=== PATIENT | male | born 1955 | race Caucasian/White ===

== ENCOUNTER 2022-02-14 16:14 | Emergency (ER) | payer OTHER, SELFPAY ==
[2022-02-14 16:43] VITALS: BP 156/76; PULSE 77; RESP 16; TEMP 36.9; O2SAT 98; BMI 31.8
--- NOTE | 2022-02-14 18:28 | DI.RAD.S_ITS ---
PROCEDURE: XR HAND LT MIN 3V INDICATIONS: LAceration on dorsal aspect of middle finger TECHNIQUE: 3 views of the hand(s) acquired. COMPARISON: None. FINDINGS: Bones: Oblique fracture through the mid 3rd proximal phalanx with dorsal angulation of distal fracture fragment Soft tissues: No suspicious soft tissue calcifications. IMPRESSION: Comminuted angulated 3rd proximal phalangeal fracture Approved by: Marco Mayfield M.D. on 02/14/2022 at 18:17
--- NOTE | 2022-02-14 19:03 | ED_ITS ---
HPI - Wound/Laceration <Rand Nuñez PA-C - Last Filed: 02/14/22 20:22> General Chief Complaint: Wound/Laceration Stated Complaint: Left middle finger injury Time Seen by Provider: 02/14/22 18:06 History of Present Illness HPI narrative: 66-year-old male with past medical history hypertension, diabetes, hyperlipidemia, gout presents to the ED status post a finger injury sustained just prior to arrival. Patient states he was working with a bow and arrow, when the bow accidentally injured his left middle finger on the dorsal aspect. Patient says that the material that hit him was most likely fiberglass. Patient sustained a laceration to the dorsal side, complains of pain at the site of the injury. Bleeding has been controlled with pressure. Patient endorses that he is able to move all his fingers and move all his joints. Patient denies numbness, tingling, weakness. Patient's last tetanus was 6 years ago. Patient is right-hand dominant. Related Data Previous Rx's Medication Instructions Recorded cephalexin 500 mg capsule 500 mg PO TID #21 caps 02/14/22 Allergies Allergy/AdvReac Type Severity Reaction Status Date / Time Penicillins Allergy Severe uknown Verified 02/14/22 20:28 Review of Systems <Rand Nuñez PA-C - Last Filed: 02/14/22 20:22> Review of Systems ROS Unobtainable: All systems reviewed & are unremarkable except as noted in HPI and below Constitutional Constitutional: Denies chills, Denies fatigue, Denies fever(s), Denies frequent falls, Denies lethargy and Denies weakness Eyes Eyes: Denies change in vision, Denies eye discharge, Denies irritation and Denies loss of vision ENT Ears, Nose, Mouth, and Throat: Denies change in voice, Denies dizziness, Denies neck pain, Denies sore throat and Denies throat swelling Cardiovascular Cardiovascular: Denies chest pain, Denies irregular heart rhythm, Denies lightheadedness, Denies palpitations, Denies dyspnea, Denies dyspnea on exertion and Denies orthopnea Respiratory Respiratory: Denies cough, Denies dyspnea, Denies dyspnea on exertion and Denies wheezing Gastrointestinal Gastrointestinal: Denies abdominal pain, Denies change in bowel habits, Denies diarrhea, Denies nausea and Denies vomiting Genitourinary Genitourinary: Denies hematuria, Denies flank pain, Denies urinary incontinence and Denies urinary urgency Musculoskeletal Musculoskeletal: Denies back pain, Denies muscle weakness, Denies neck pain, Denies numbness and Denies tingling Integumentary/Breasts Skin/Breast: Denies pruritus, Denies erythema, Denies rash and Denies wounds Comments: Laceration on left middle finger Neurologic Neurologic: Denies behavioral changes, Denies confusion, Denies dizziness, Denies frequent falls, Denies loss of vision, Denies numbness, Denies tingling and Denies weakness Psychiatric Psychiatric: Denies anxiety, Denies behavioral changes, Denies confusion, Denies depression, Denies homicidal ideation and Denies suicidal ideation Endocrine Endocrine: Denies fatigue, Denies flushing and Denies palpitations Hematologic/Lymphatic Hematologic/Lymphatic: Denies easy bruising Allergic/Immunologic Allergic/Immunologic: Denies urticaria, Denies throat swelling and Denies wheezing Patient History <Rand Nuñez PA-C - Last Filed: 02/14/22 20:22> alcohol intake frequency: a few times a month Substance Use Type: does not use Exam <aRnd Nuñez PA-C - Last Filed: 02/14/22 20:22> Narrative Exam Narrative: Const General:?cooperative, healthy appearing and comfortable [facility] Head:?normal to inspection Ears:?hearing grossly normal bilaterally Nose:?external nose normal Face and sinus:?normal facial exam and sinuses nontender Mouth:?oral mucosae normal Throat:?posterior oropharynx normal Eyes General:?appearance normal, both eyes and all related structures Neck Neck:?normal visual inspection and no lymphadenopathy noted Resp Effort & Inspection:?normal respiratory effort Auscultation:?clear to auscultation bilaterally Cardio Rate:?regular rate Rhythm:?regular rhythm Integumentary 2 cm linear laceration on dorsal aspect of left middle finger along the proximal phalanx. Bleeding is controlled with pressure. There is full range of motion. Strength and sensation is intact. Patient is neurovascularly intact. Neuro General:?patient alert, patient awake and patient oriented x3 Initial Vital Signs Initial Vital Signs: Vital Signs Temperature 98.4 F 02/14/22 16:43 Pulse Rate 77 02/14/22 16:43 Respiratory Rate 16 02/14/22 16:43 Blood Pressure 156/76 H 02/14/22 16:43 Pulse Oximetry 98 02/14/22 16:43 Oxygen Delivery Method 02/14/22 16:43 <Christa Smith MD - Last Filed: 02/14/22 23:40> Initial Vital Signs Initial Vital Signs: Vital Signs Temperature 98.4 F 02/14/22 16:43 Pulse Rate 77 02/14/22 16:43 Respiratory Rate 16 02/14/22 16:43 Blood Pressure 156/76 H 02/14/22 16:43 Pulse Oximetry 98 02/14/22 16:43 Oxygen Delivery Method 02/14/22 16:43 <Christa Smith MD - Last Filed: 02/14/22 23:40> Laceration Repair Middle finger laceration: Time of procedure: 23:29 Site: hand Side (If applicable): left Size (cm): 4 Description: irregular, contaminated and other (involves tendons and bone) Depth: involves muscle layer and involves tendon Local Anesthetic: lidocaine 1% Amount of anesthesia used (mL): 8 Pre-repair: wound explored and irrigated extensively Skin layer closed with: nylon Skin layer suture size: 3-0 Number of sutures: 2 Technique: other (loose approximation for hemostasis) Orthopedic Fracture Reduction left middle finger: Time of procedure: 23:31 Side: left Fracture Reduction Location: finger Analgesia: nerve block Post Reduction X-rays Demonstrate: acceptable reduction Post-reduction neuro exam: other (good cap refill, digital block in place and effective) Post-reduction vascular exam: intact Splint Applied: Yes Patient Tolerated Procedure: Well Orthopedic Splinting/Casting index finger left: Time of procedure: 23:32 Side: left Upper Extremity Injury Location: finger Upper Extremity Immobilizer: volar splint (Extended past the tips of the fingers to trying keep the index finger and position of comfort and fully splinted) Post splinting neuro exam: other (dignital block in place) Post splinting vascular exam: intact Placed by: Provider Course <Rand Nuñez PA-C - Last Filed: 02/14/22 20:22> Orders Ordered: ED Orders 02/14/22 18:28 XR hand LT min 3V Stat 02/14/22 22:31 XR finger LT min 2V Stat Discontinued Medications Bacitracin (Bacitracin Oint 0.9 Gm Pckt) 1 applic TOP NOW ONE Stop: 02/14/22 22:08 Last Admin: 02/14/22 22:42 Dose: 1 applic Documented By: NAEEM Diphtheria/Tetanus/Acell Pertussis (Tet,Diph,Pertuss(Acell),Vac/Pf 0.5 Ml Syringe) 0.5 ml IM .ONCE ONE Stop: 02/14/22 20:58 Last Admin: 02/14/22 21:05 Dose: 0.5 ml Documented By: AMU Cefazolin Sodium/Dextrose (Ancef) 100 mls @ 200 mls/hr IV NOW ONE Stop: 02/14/22 20:11 Last Admin: 02/14/22 22:41 Dose: Not Given Documented By: NAEEM Cefazolin Sodium/Dextrose (Ancef) 100 mls @ 200 mls/hr IV NOW ONE Stop: 02/14/22 22:59 Last Infusion: 02/14/22 23:13 Dose: 0 mls/hr Documented By: Admin: 02/14/22 22:40 Dose: 200 mls/hr Documented By: NAEEM Lidocaine HCl (Lidocaine 1% (Pf) 5 Ml) 10 ml INJ NOW ONE Stop: 02/14/22 19:56 Last Admin: 02/14/22 20:32 Dose: 10 ml Documented By: SB Morphine Sulfate (Morphine 4 Mg/Ml Inj) 4 mg IV NOW ONE Stop: 02/14/22 19:57 Last Admin: 02/14/22 20:33 Dose: Not Given Documented By: SB Vital Signs Vital signs: Vital Signs - 8 hr 02/14/22 16:43 02/14/22 21:52 02/14/22 21:52 Temperature 98.4 F Pulse Rate 77 68 Respiratory Rate 16 Blood Pressure 156/76 H 133/67 Pulse Oximetry 98 97 Oxygen Delivery Method Room Air <Christa Smith MD - Last Filed: 02/14/22 23:40> Orders Ordered: ED Orders 02/14/22 18:28 XR hand LT min 3V Stat 02/14/22 22:31 XR finger LT min 2V Stat Discontinued Medications Bacitracin (Bacitracin Oint 0.9 Gm Pckt) 1 applic TOP NOW ONE Stop: 02/14/22 22:08 Last Admin: 02/14/22 22:42 Dose: 1 applic Documented By: NAEEM Diphtheria/Tetanus/Acell Pertussis (Tet,Diph,Pertuss(Acell),Vac/Pf 0.5 Ml Syringe) 0.5 ml IM .ONCE ONE Stop: 02/14/22 20:58 Last Admin: 02/14/22 21:05 Dose: 0.5 ml Documented By: AMU Cefazolin Sodium/Dextrose (Ancef) 100 mls @ 200 mls/hr IV NOW ONE Stop: 02/14/22 20:11 Last Admin: 02/14/22 22:41 Dose: Not Given Documented By: SB Cefazolin Sodium/Dextrose (Ancef) 100 mls @ 200 mls/hr IV NOW ONE Stop: 02/14/22 22:59 Last Infusion: 02/14/22 23:13 Dose: 0 mls/hr Documented By: Admin: 02/14/22 22:40 Dose: 200 mls/hr Documented By: SB Lidocaine HCl (Lidocaine 1% (Pf) 5 Ml) 10 ml INJ NOW ONE Stop: 02/14/22 19:56 Last Admin: 02/14/22 20:32 Dose: 10 ml Documented By: SB Morphine Sulfate (Morphine 4 Mg/Ml Inj) 4 mg IV NOW ONE Stop: 02/14/22 19:57 Last Admin: 02/14/22 20:33 Dose: Not Given Documented By: SB Vital Signs Vital signs: Vital Signs - 8 hr 02/14/22 16:43 02/14/22 21:52 02/14/22 21:52 Temperature 98.4 F Pulse Rate 77 68 Respiratory Rate 16 Blood Pressure 156/76 H 133/67 Pulse Oximetry 98 97 Oxygen Delivery Method Room Air MDM - Wound/Laceration <Rand Nuñez PA-C - Last Filed: 02/14/22 20:22> MDM Narrative Medical decision making narrative: 66-year-old male presents to the ED status post a finger injury sustained just prior to arrival. Concern for fracture/dislocation versus laceration. Will obtain x-rays. Will reassess. X-ray with comminuted angulated 3rd proximal phalangeal fracture. Will start patient on cefazolin, update Tdap. Will control pain with morphine. Patient to be washed out and sutured, discharged home on antibiotics. Ortho surgeon on- call Dr. Mar is on board with the plan. Care of the patient is now transferred to Dr. Christa Giron. <Christa Smith MD - Last Filed: 02/14/22 23:40> MDM Narrative Medical decision making narrative: 66-year-old male presents to the ED status post a finger injury sustained just prior to arrival. Concern for fracture/dislocation versus laceration. Will obtain x-rays. Will reassess. X-ray with comminuted angulated 3rd proximal phalangeal fracture. Will start patient on cefazolin, update Tdap. Will control pain with morphine. Patient to be washed out and sutured, discharged home on antibiotics. Ortho surgeon on- call Dr. Mar is on board with the plan. Care of the patient is now transferred to Dr. Christa Giron. Patient is independently examined. He does have distal sensation and good blood flow prior to anesthesia. There was a large laceration over the dorsum of the proximal phalanx with obvious fracture and tendon injury. The wound is thoroughly irrigated, skin is closed for hemostasis, bulky dressing is placed and splint is placed to stabilize the finger. I have impressed upon him the absolute importance of antibiotics and immediate follow-up. We discussed infection, poor healing, additional complications including and up to hand amputation. Pain is adequately controlled, he is demonstrating understanding of instructions, questions are answered he is safe for home discharge Discharge Plan Departure Patient Disposition: Home Clinical Impression: Laceration Finger fracture, left Qualifiers: Encounter type: initial encounter Finger: middle finger Fracture type: open Phalanx: middle Fracture alignment: displaced Qualified Code(s): S62.623B - Displaced fracture of middle phalanx of left middle finger, initial encounter for open fracture Instructions: DI for Finger Fracture Activity Restrictions/Additional Instructions: Thank you for coming in today You have and open fracture of the proximal phalanx with tendon injury on the left side. In the emergency department it was thoroughly cleaned out, you were given IV antibiotics and a tetanus shot, the wound was loosely reapproximated to help with bleeding and your placed in an overly large splint to keep your finger completely immobilized Finger fractures, particularly open finger fractures can have lots of complications. You need to call [facility] at [phone] 1st thing tomorrow to schedule an immediate follow-up appointment. Please tell them that you were in the emergency department and have an open fracture of the proximal phalanx with tendon injury on the left side. Dr Mar recommended outpatient follow up for definitive care If you have difficulty scheduling any follow-up, please return to the emergency department Prescriptions: New cephalexin 500 mg capsule 500 mg PO TID Qty: 21 0RF Referrals: Hua Lozada MD [Primary Care Provider] -
--- NOTE | 2022-02-14 20:10 | PC.NURSE ---
Pt not given antibiotic due to report of an allergy to penicillin. Reports childhood reaction that the doctor said would be life threatening if he had it again. Provider Rand morrison.
[2022-02-14] MEDS: LIDOCAINE 1% (PF) 5 ML 10 ML INJ (20:32)
[2022-02-14] MEDS: TET,DIPH,PERTUSS(ACELL),VAC/PF 0.5 ML SYRINGE IM (21:05)
[2022-02-14 21:52] VITALS: BP 133/67; PULSE 68; O2SAT 97
--- NOTE | 2022-02-14 22:31 | DI.RAD.S_ITS ---
PROCEDURE: XR FINGER LT MIN 2V INDICATIONS: post reduction/splinting TECHNIQUE: AP hand, 2 views of the 3rd digit acquired. COMPARISON: [facility], CR, XR HAND LT MIN 3V, 02/14/2022, 18:34. FINDINGS: Bones: There is an external splint which limits evaluation of fine bony detail. There is slightly improved alignment status post closed reduction of the previously described fracture of the 3rd proximal phalanx. There is persistent mild radial sided displacement with mild dorsal angulation, decreased from the prior study. Soft tissues: External splint limits evaluation of soft tissue details. IMPRESSION: 1. Slightly improved alignment status post closed reduction of 3rd proximal phalangeal fracture. Dictated by: Ganga Saleem M.D. on 02/14/2022 at 23:33 Approved by: Ganga Saleem M.D. on 02/14/2022 at 23:34
[2022-02-14] MEDS: CEFAZOLIN 2 GM/100 ML PREMIX 100 ML IV (22:40)
[2022-02-14] MEDS: BACITRACIN OINT 0.9 GM PCKT 1 APPLIC TOP (22:42)
[2022-02-14 23:53] VITALS: PULSE 70; O2SAT 97
[2022-02-14 23:54] VITALS: BP 148/69
== END 2022-02-14 23:58 | disposition home or self-care (01) ==
PROVIDERS: Emergency Provider Emergency Medicine; PCP Family Medicine
DX: S62.623B Displaced fracture of middle phalanx of left middle finger, initial encounter for open fracture (principal); W22.8XXA Striking against or struck by other objects, initial encounter; Z23 Encounter for immunization
CPT/HCPCS: 13132; 26725; 73130; 73140; 90471; 96365; 99284; 90715; J0690

== ENCOUNTER 2023-03-13 20:06 | Inpatient (IN) | payer MEDICARE, OTHER, SELFPAY ==
[2023-03-13] VITALS (16 sets, daily range): BP systolic 116–147; BP diastolic 53–102; PULSE 78–93; RESP 13–24; TEMP 36.9; O2SAT 95–99; BMI 30.5
--- NOTE | 2023-03-13 20:24 | DI.RAD.S_ITS ---
PROCEDURE: XR ANKLE RT MIN 3V INDICATIONS: walking and felt a pop TECHNIQUE: 3 views of the ankle were acquired. COMPARISON: None. FINDINGS: Bones: Fracture dislocation of the ankle, with lateral malleolus fragment and medial malleolus fragment displaced from the metaphysis. Open fracture medially. Superimposed degenerative changes and plantar calcaneal enthesopathy. Soft tissues: Soft tissue swelling is present. IMPRESSION: Open fracture dislocation of the ankle. Dictated by: Bert Blackman M.D. on 03/13/2023 at 21:37 Approved by: Bert Blackman M.D. on 03/13/2023 at 21:38
--- NOTE | 2023-03-13 21:05 | ED_ITS ---
HPI - Extremity Injury (Lower) General Chief Complaint: Extremity Injury, Lower Stated Complaint: rt ankle injury Time Seen by Provider: 03/13/23 20:09 Source: patient Mode of arrival: Ambulatory History of Present Illness HPI Narrative: 67-year-old male nonsmoker without significant chronic medical history presents with his in the chief complaint of an ankle injury. He states that he was walking in a small room and stepped awkwardly and his foot moved in abnormal motion, he felt significant pain and heard a loud crack. He now has pain and is unable to weightbear. He denies any numbness or tingling. He denies any pain in his knee or hip. Related Data Home Medications Medication Instructions Recorded Confirmed allopurinol 300 mg tablet 300 mg PO BID 03/13/23 03/13/23 amlodipine 10 mg tablet 10 mg PO DAILY 03/13/23 03/13/23 empagliflozin 25 mg tablet 25 mg PO DAILY 03/13/23 03/13/23 (Jardiance) glipizide 10 mg tablet 10 mg PO BID 03/13/23 03/13/23 hydrochlorothiazide 100 mg tablet 125 mg PO DAILY 03/13/23 03/13/23 losartan 100 mg tablet 100 mg PO DAILY 03/13/23 03/13/23 metformin 500 mg tablet,extended 500 mg PO QID 03/13/23 03/13/23 release 24 hr rosuvastatin 20 mg tablet 20 mg PO DAILY 03/13/23 03/13/23 Allergies Allergy/AdvReac Type Severity Reaction Status Date / Time Penicillins Allergy Severe uknown Verified 02/14/22 20:28 Review of Systems Review of Systems Narrative: GENERAL: Denies chills, fatigue, malaise, fever, sweats. HEENT: Denies sinus pain, ear pain, sore throat, difficulty swallowing, dizziness. RESPIRATORY: Denies dyspnea, cough, wheezing, hemoptysis, sputum. CARDIOVASCULAR: Denies chest pain, palpitations, orthopnea, edema, GASTROINTESTINAL: Denies nausea, vomiting, abdominal pain, diarrhea, constipation, melena. : Denies dysuria, frequency, incontinence, hematuria, urinary retention. MUSCULOSKELETAL: See HPI SKIN: Denies rash, skin lesions, or other NEUROLOGIC: Denies weakness, headache, numbness, change in speech, confusion, seizures, incoordination. PSYCHIATRIC: No concerning psychosocial issues. 12 point review of systems is negative except for those stated above Patient History Social History household members: spouse alcohol intake frequency: a few times a month Substance Use Type: does not use Exam Narrative Exam Narrative: GENERAL: [67] year old patient appears stated age. Well-developed patient, in mild distress. HEAD: Atraumatic. Normocephalic. EYES: Pupils equal round and reactive. Extraocular motions intact. No scleral icterus. No injection or drainage. ENT: Nose without bleeding, purulent drainage. Throat without erythema, tonsil lar hypertrophy or exudate. Airway patent. NECK: Trachea midline. Non tender CARDIOVASCULAR: Regular rate and rhythm without murmurs, gallops, or rubs. RESPIRATORY: Clear to auscultation. Breath sounds equal bilaterally. No wheezes, rales, or rhonchi. GASTROINTESTINAL: Abdomen soft, non-tender, nondistended. EXTREMITIES: Obvious deformity to right ankle, superficial abrasions overlying medial malleolus, no bleeding, not obviously open, no numbness or tingling, no pain in knee or hip. BACK: Nontender without deformity or crepitance. No flank tenderness. NEURO: AOx3. SKIN: No rash or erythema of visible areas Initial Vital Signs Initial Vital Signs: Vital Signs Temperature 98.5 F 03/13/23 20:17 Pulse Rate 78 03/13/23 20:17 Respiratory Rate 20 03/13/23 20:17 Blood Pressure 128/81 03/13/23 20:17 Pulse Oximetry 99 03/13/23 20:17 Oxygen Delivery Method Room Air 03/13/23 20:17 Procedures Orthopedic Fracture Reduction Fracture #1: Time Out Performed: Yes Side: right Fracture Reduction Location: tibia and fibula Analgesia: procedural sedation Technique: direct manipulation and traction/counter-traction Post Reduction X-rays Demonstrate: anatomical reduction Post-reduction neuro exam: intact Post-reduction vascular exam: intact Splint Applied: Yes Patient Tolerated Procedure: Well Orthopedic Splinting/Casting Injury #1: Side: right Lower Extremity Injury Location: ankle Lower Extremity Immobilizer: posterior splint and stirrup splint Post splinting neuro exam: intact Post splinting vascular exam: intact Placed by: Provider Procedural Sedation Consent signed: Yes Time out performed: Yes Indication: fracture/dislocation reduction ASA Class: I Mallampati Airway Classification: Class II IV Propofol dose (mg): 100 Intraservice time/total sedation time (min): 10 ED Sedation Level: Moderate (Concious) Patient Tolerated Procedure: Well Complications: none Course Orders Ordered: ED Orders 03/13/23 20:24 XR ankle RT min 3V Stat 03/13/23 20:50 CBC Auto Diff [Complete Blood Count AUTO DIFF] Stat CMP [Comprehensive Metabolic Panel] Stat Hydromorphone HCl (Hydromorphone 0.5 Mg Inj) 0.5 mg IV Q2H PRN PRN Reason: Pain, Severe (7-10) Cefazolin Sodium 1 gm/ Sodium (Chloride) 100 mls @ 200 mls/hr IV Q8H JEFFREY Last Infusion: 03/13/23 22:18 Dose: 0 mls/hr Documented By: Admin: 03/13/23 21:45 Dose: 200 mls/hr Documented By: RAGHU Sodium Chloride (Normal Saline 0.9%) 1,000 mls @ 125 mls/hr IV CONT JEFFREY Ondansetron HCl (Ondansetron 4 Mg/2 Ml Inj) 4 mg IV Q4HR PRN PRN Reason: Nausea And Vomiting Discontinued Medications Hydromorphone HCl (Hydromorphone 0.5 Mg Inj) 0.5 mg IV NOW ONE Stop: 03/13/23 22:20 Last Admin: 03/13/23 22:24 Dose: 0.5 mg Documented By: RAGHU Propofol (Propofol 200 Mg/20 Ml Vial) 100 mg 1 mg/kg (100 mg) IV NOW ONE Stop: 03/13/23 20:56 Last Admin: 03/13/23 21:12 Dose: 100 mg Documented By: RAGHU Vital Signs Vital signs: Vital Signs - 8 hr 03/13/23 20:17 03/13/23 21:09 03/13/23 21:11 Temperature 98.5 F Pulse Rate 78 85 83 Respiratory Rate 20 22 Blood Pressure 128/81 Pulse Oximetry 99 98 98 Oxygen Delivery Method Room Air 03/13/23 21:11 Temperature Pulse Rate Respiratory Rate Blood Pressure 127/53 L Pulse Oximetry Oxygen Delivery Method MDM - Extremity Injury (Lower) Lab Data 03/13/23 20:50 03/13/23 20:50 Labs: Lab Results 10/03/23 10/03/23 Range/Units 20:50 20:50 WBC 6.5 (4.5-11.0) X10^3/uL RBC 4.78 (4.5-5.9) X10^6/uL Hgb 15.5 (13.5-17.5) g/dL Hct 44.5 (41-53) % MCV 93.0 (80-100) fL MCH 32.4 (26-34) PG MCHC 34.9 (30-36) % RDW 13.1 (11.6-14.8) % Plt Count 148 L (150-400) X10^3/uL Neut % (Auto) 63.4 (50-75) % Lymph % (Auto) 19.6 L (25-40) % Rankin % (Auto) 14.9 H (3-14) % Eos % (Auto) 1.4 L (2-4) % Baso % (Auto) 0.7 (0-2) % Neut # (Auto) 4100 (8462-4498) /uL Lymph # (Auto) 1300 (4627-5036) /uL Rankin # (Auto) 1000 H (0-900) /uL Eos # (Auto) 100 (0-450) /uL Baso # (Auto) 0 (0-100) /uL Sodium 138 (137-145) mmol/L Potassium 3.9 (3.4-5.1) mmol/L Chloride 105 (98-107) mmol/L Carbon Dioxide 16 L (22-32) mmol/L BUN 15 (9-20) mg/dL Creatinine 0.65 L (0.66-1.25) mg/dL Estimated GFR > 60 (>60) mL/min BUN/Creatinine Ratio 23.1 H (6-22) Glucose 145 H (80-110) mg/dL Calcium 9.6 (8.4-10.2) mg/dL Total Bilirubin 0.5 (0.2-1.3) mg/dL AST 50 (17-59) IU/L ALT 50 H (<50) IU/L Alkaline Phosphatase 54 (38-126) U/L Total Protein 7.5 (6.3-8.2) g/dL Albumin 4.2 (3.5-5.0) g/dL Globulin 3.3 (1.7-4.1) g/dL Albumin/Globulin Ratio 1.3 (1.0-2.8) MDM Narrative Medical decision making narrative: [67] year old patient presents with isolated, neurovascularly intact but likely open fracture to ankle Multiple etiologies for patient's symptoms considered including, but not limited to: [Fracture versus dislocation versus open injury versus others] Prior Charts reviewed in our EMR Primary Historian: patient Labs reviewed and interpreted by myself: No significant abnormalities requiring specific intervention Imaging reviewed: Open fracture dislocation of right ankle, postreduction shows minimal interval improvement Consultations: Discussed with on-call orthopedist, recommends reduction, splinting, antibiotics, admission to his service, NPO after midnight, pain control, elevation and icing will likely go to OR tomorrow Discharge Plan Departure Patient Disposition: Admitted As Inpatient Clinical Impression: Open ankle fracture Admit Date/Time: 03/13/23 21:14 Admit Provider: Abraham Wahl
[2023-03-13] MEDS: propofoL 200 MG/20 ML VIAL 100 MG IV (21:12)
[2023-03-13 21:24] LABS: Add Manual Diff / Slide Review NO; Basophils Absolute Auto 0 /uL (0-100); Basophils Percent Auto 0.7 % (0-2); Eosinophils Absolute Auto 100 /uL (0-450); Eosinophils Percent Auto 1.4 % (2-4); Hematocrit 44.5 % (41-53); Hemoglobin 15.5 g/dL (13.5-17.5); Lymphocytes Absolute Auto 1300 /uL (1100-4500); Lymphocytes Percent Auto 19.6 % (25-40); Mean Corpuscular HGB Conc 34.9 % (30-36); Mean Corpuscular Hemoglobin 32.4 PG (26-34); Monocytes Absolute Auto 1000 /uL (0-900); Monocytes Percent Auto 14.9 % (3-14); Neutrophils Absolute Auto 4100 /uL (1500-7000); Neutrophils Percent Auto 63.4 % (50-75); Platelet Count 148 X10^3/uL (150-400); Red Blood Cell Count 4.78 X10^6/uL (4.5-5.9); Red Cell Distribution Width 13.1 % (11.6-14.8); White Blood Cell Count 6.5 X10^3/uL (4.5-11.0)
--- NOTE | 2023-03-13 21:25 | DI.RAD.S_ITS ---
PROCEDURE: XR ANKLE RT 2V INDICATIONS: post reduction TECHNIQUE: 2 views of the ankle were acquired. COMPARISON: [facility], , XR ANKLE RT MIN 3V, 03/13/2023, 20:37. FINDINGS: Bones: Fracture dislocation of the ankle, with lateral and medial malleolar fragments again seen. Mortise and fracture alignment is slightly improved. A suspected posterior malleolar fracture is also present. Soft tissues: Soft tissue swelling. IMPRESSION: Slightly improved fracture and ankle alignment. Dictated by: Bert Blackman M.D. on 03/13/2023 at 22:22 Approved by: Bert Blackman M.D. on 03/13/2023 at 22:23
[2023-03-13 21:32] LABS: Alanine Aminotransferase 50 IU/L (<50); Albumin 4.2 g/dL (3.5-5.0); Albumin Globulin Ratio 1.3 (1.0-2.8); Alkaline Phosphatase 54 U/L (38-126); Aspartate Aminotransferase 50 IU/L (17-59); BUN Creatinine Ratio 23.1 (6-22); Bilirubin Total 0.5 mg/dL (0.2-1.3); Blood Urea Nitrogen 15 mg/dL (9-20); Calcium 9.6 mg/dL (8.4-10.2); Carbon Dioxide 16 mmol/L (22-32); Chloride 105 mmol/L (98-107); Estimated Glomerular Filt Rate > 60 mL/min (>60); Globulin 3.3 g/dL (1.7-4.1); Glucose 145 mg/dL (80-110); HEMOLYSIS 25 (0-50); Potassium 3.9 mmol/L (3.4-5.1); Sodium 138 mmol/L (137-145); Total Protein 7.5 g/dL (6.3-8.2)
[2023-03-13] MEDS: CEFAZOLIN VIAL 1 GM in SODIUM CHLORIDE 0.9% 100 ML IV (21:45)
[2023-03-13] MEDS: HYDROMORPHONE 0.5 MG INJ IV (22:24)
[2023-03-13] MEDS: SODIUM CHLORIDE 0.9% 1,000 ML 125 ML IV (22:55)
[2023-03-14] VITALS (11 sets, daily range): BP systolic 133–170; BP diastolic 72–102; PULSE 86–97; RESP 10–18; TEMP 36.2–37; O2SAT 92–97; BMI 30.5
--- NOTE | 2023-03-14 | DI.RAD.S_ITS ---
PROCEDURE: XR ANKLE RT 2V INDICATIONS: RT ANKLE ORIF TECHNIQUE: 4 intraoperative views of the ankle were acquired. COMPARISON: [facility], CR, XR ANKLE RT 2V, 03/13/2023, 21:21. [facility], CR, XR ANKLE RT MIN 3V, 03/13/2023, 20:37. FINDINGS: Bones: Intraoperative fluoroscopic views during ORIF of the ankle. Hardware appears intact. There is improved alignment. Soft tissues: No tibiotalar joint effusion. Achilles tendon appears normal. IMPRESSION: Intraoperative fluoroscopic views during ORIF of the ankle. There is improved alignment. Hardware appears intact. Dictated by: Elliott Wiley M.D. on 03/14/2023 at 15:07 Approved by: Elliott Wiley M.D. on 03/14/2023 at 15:08
[2023-03-14] MEDS: HYDROMORPHONE 0.5 MG INJ IV ×4 (01:20→07:52)
[2023-03-14] MEDS: CEFAZOLIN VIAL 1 GM in SODIUM CHLORIDE 0.9% 100 ML IV (05:45)
[2023-03-14] MEDS: SODIUM CHLORIDE 0.9% 1,000 ML 125 ML IV (07:52)
[2023-03-14] MEDS: LACTATED RINGERS 1,000 ML 42 ML IV ×3 (10:23→13:00)
--- NOTE | 2023-03-14 11:06 | SUR.OPER ---
Prone on padded OR bed, head in foam head support, gel chest rolls, gel pad under knees, pillow under lower legs, toes free of pressure, arms secured on padded arm boards at <90 degrees abduction. Safety belt at thigh.
--- NOTE | 2023-03-14 11:06 | CM.DANOTE ---
DCP: Chart review for case, met with patient at bedside, they agree to case management assessment. Completed DCP assessment based on information available. Patient is a 67 year old admitted for right ankle fracture. Plan for add on OR today. States he has walked on crutches before and understands likely non-weight bearing status during recovery. 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 No foreseen barriers to DC home. PCP: Abel Lozada Payer: [employer] DME: Using old crutches that belonged to his mother. Will need new crutches, possible FWW dependent upon WBS and PT eval post op. DCP: Home with supportive . Kateryna Mosquera RN, CM Discharge Planning/Care Management CM Discharge Assessment Start: 03/14/23 11:00 Freq: Status: Active Protocol: Document 03/14/23 11:05 BQ (Rec: 03/14/23 11:06 BQ [id number]) Discharge Planning Assessment Assigned Engineering Director Kateryna Mosquera RN, CM Advance Directives? No History Provided By Patient Has Patient been admitted in last 30 No days? Prior Living Arrangements House Household Members spouse Type of transporation used prior to Drives own vehicle admit Independent with ADL's Yes Is patient alert and oriented? Yes Caregiver for Another No DME Already Rented / Owned Crutches Comment Using his mothers crutches, will new new/fitted, possible FWW Barriers to Discharge No Discharge Plan Home Referrals Initiated None needed Whiteboard Updated in Patient Room with Yes name and ext. # of Engineering Director Review Status In Process Next Review Type Continued Stay Review
--- NOTE | 2023-03-14 11:25 | P.HP_ITS ---
History of Present Illness History of Present Illness Date Patient Seen: 03/14/23 Time Patient Seen: 11:26 Chief complaint: rt ankle injury Narrative: This is a pleasant 67-year-old male with past medical history of well-controlled type 2 diabetes on metformin last A1c 6.2, who sustained a twisting injury resulting in a trimalleolar open ankle fracture last night. He has no other medical issues and is otherwise healthy. He was seen at the [facility] where reduction was attempted and was unsuccessful. Currently in a splint. Denies any distal numbness or tingling. He does not have any neuropathy from his diabetes. No other complaints at this time. No recent nausea, vomiting, diarrhea, fevers, chills, night sweats, shortness of breath or chest pain no other constitutional symptoms. [facility] Social History household members: spouse Smoking Status: Never smoker Meds Home Medications and Allergies Home Medications Medication Instructions Recorded Confirmed Type allopurinol 300 mg tablet 300 mg PO BID 03/13/23 03/13/23 History amlodipine 10 mg tablet 10 mg PO DAILY 03/13/23 03/13/23 History empagliflozin 25 mg tablet 25 mg PO DAILY 03/13/23 03/13/23 History (Jardiance) glipizide 10 mg tablet 10 mg PO BID 03/13/23 03/13/23 History hydrochlorothiazide 100 mg tablet 125 mg PO DAILY 03/13/23 03/13/23 History losartan 100 mg tablet 100 mg PO DAILY 03/13/23 03/13/23 History metformin 500 mg tablet,extended 500 mg PO QID 03/13/23 03/13/23 History release 24 hr rosuvastatin 20 mg tablet 20 mg PO DAILY 03/13/23 03/13/23 History Allergies Allergy/AdvReac Type Severity Reaction Status Date / Time Penicillins Allergy Severe uknown Verified 02/14/22 20:28 Review of Systems Review of Systems ROS: Yes All systems reviewed with the patient and are negative except as otherwise documented Exam Vital Signs (past 8 hours): - 03/14/23 04:25 03/14/23 07:49 03/14/23 10:41 Temperature 98.6 F 97.2 F L 97.9 F Pulse Rate 89 86 86 Respiratory Rate 18 18 18 Blood Pressure 142/76 H 138/72 153/79 H Pulse Oximetry 94 96 97 Oxygen Delivery Method Room Air Oxygen Flow Rate 0 0 Oxygen Delivery Method Room Air Oxygen Flow Rate 0 Narrative Exam Narrative: HEENT: Head atraumatic eyes anicteric moist mucous membranes Cardiovascular: Palpable peripheral pulses extremities are warm and well perfused Respiratory: Breathing comfortably on room air Psychiatric: Appropriate mood and affect Neuro: No acute deficits Musculoskeletal: Exam of right lower extremity demonstrates splint in place, able to wiggle toes. Sensation intact in sural, saphenous, superficial peroneal, deep peroneal and tibial nerve distributions. 2+ dorsalis pedis pulse with brisk capillary refill less than 2 seconds. Objective Imaging Ankle x-ray right: My impression: AP, lateral and oblique right ankle reviewed from the emergency department demonstrates a trimalleolar ankle fracture significantly displaced laterally. Labs 03/13/23 20:50 03/13/23 20:50 Labs: Laboratory Results - last 24 hr 03/13/23 20:50 WBC 6.5 RBC 4.78 Hgb 15.5 Hct 44.5 MCV 93.0 MCH 32.4 MCHC 34.9 RDW 13.1 Plt Count 148 L Neut % (Auto) 63.4 Lymph % (Auto) 19.6 L Foard % (Auto) 14.9 H Eos % (Auto) 1.4 L Baso % (Auto) 0.7 Neut # (Auto) 4100 Lymph # (Auto) 1300 Foard # (Auto) 1000 H Eos # (Auto) 100 Baso # (Auto) 0 Sodium 138 Potassium 3.9 Chloride 105 Carbon Dioxide 16 L BUN 15 Creatinine 0.65 L Estimated GFR > 60 BUN/Creatinine Ratio 23.1 H Glucose 145 H Calcium 9.6 Total Bilirubin 0.5 AST 50 ALT 50 H Alkaline Phosphatase 54 Total Protein 7.5 Albumin 4.2 Globulin 3.3 Albumin/Globulin Ratio 1.3 Assessment & Plan Assessment & Plan narrative: Assessment: Right open trimalleolar ankle fracture Plan: We discussed operative indications. Patient has a open unstable trimalleolar ankle fracture. In order to restore stability of the ankle allow weight-bearing in reduce the risk of infection we recommend operative fixation of his ankle along with irrigation debridement and IV antibiotics. Risks and benefits of surgery were discussed again including the risk of infection, damage to internal structures, bleeding, nerve injury, instability, need for revision surgery, blood clots, anesthesia and . No guarantees were made regarding outcomes. Patient expressed understanding and accepted these risks and wished to go forward with surgery and consent was signed.
[2023-03-14] MEDS: TRANEXAMIC ACID 1,000 MG in SODIUM CHLORIDE 0.9% 100 ML 200 MG IV (11:45)
--- NOTE | 2023-03-14 12:20 | SUR.OPER ---
Lateral on a kumar bag, head on pillow, gel axillary roll in place, bottom leg bent with gel pad under knee to foot, upper leg straight and supported with pillows. Upper arm supported by pillows and secured over bottom arm to padded arm board. Safety belt at hip, tape over blanket lower legs.
--- NOTE | 2023-03-14 12:20 | SUR.OPER ---
MULTIPLE HEALING ABRASIONS ON HANDS, RIGHT ANKLE MEDIAL SIDE BLISTERS AND OPEN WOUND, RIGHT GROIN 2 PURPLE SKIN LESIONS, SCROTUM ENLARGED.. DR. REYES AWARE
[2023-03-14] MEDS: BUPIVACAINE 0.25% (PF) 30 ML, EPINEPHrine 0.15 MG INJ (12:52)
--- NOTE | 2023-03-14 13:11 | SUR.OPER ---
2 Grams Ancef given IV by Anesthesia at 1200
--- NOTE | 2023-03-14 14:25 | SUR.OPER ---
Supine on padded OR bed, head on pillow, arms secured on padded arm boards at <90 degrees abduction, legs uncrossed, safety belt at thigh, tape over blanket over lower legs.For second half procedure
--- NOTE | 2023-03-14 15:14 | PM.OP.1 ---
Operative Date/Time/Diagnoses Date of procedure: 03/14/23 Time of procedure: 15:15 Pre-op diagnosis: Right trimalleolar ankle fracture, open Post-op diagnosis: same Procedure & Clinicians Procedure: Operative physician trimalleolar ankle fracture, with fixation of the posterior malleolus Debridement of open fracture, skin and subcutaneous fat medial malleolus Same procedure as scheduled: Yes Indications: This is a 67-year-old male who had a ground level fall while twisting sustaining a open trimalleolar ankle fracture of his right ankle. We discussed preoperatively that in order to maintain stability restore ability to walk he was indicated for operative fixation. Risks and benefits of surgery were discussed again including the risk of infection, damage to internal structures, bleeding, nerve injury, instability, need for revision surgery, blood clots, anesthesia and . No guarantees were made regarding outcomes. Patient expressed understanding and accepted these risks and wished to go forward with surgery and consent was signed. Surgeon: Hubert Womack Click Yes if Unassisted: Yes Operative Notes Findings: Trimalleolar ankle fracture as seen under fluoroscopy and direct visualization. Open wound over the medial malleolus about 1 cm in length with direct communication to the bone. Fracture blistering noted around the medial Closure Type: primary Specimen(s): none sent Prosthetic devices, grafts, tissues, transplants, or devices: Posterior malleolus T-plate Distal fibular locking plate (March and Nephew) 3.5 mm cortical screws for the medial malleolus Estimated Blood Loss (mL): 20 Blood products transfused: none Tourniquet time (min): 105 Procedure in detail: Procedure: The patient was met in the preoperative holding area and we again discussed the risks and benefits of surgery. My initials were marked on the correct right lower extremity. The patient was brought back to the operating room and transferred to the operating table. Smooth induction of anesthesia was performed. A time-out was then performed confirming the correct operative extremity with my initials. A tourniquet was applied to the upper thigh. First he was placed in the lateral decubitus position using a kumar bag. Axillary roll was placed and all bony prominences were padded. Standard sterile prep was done with chlorhexidine. Appropriate dry time was observed. An Esmarch was used and the tourniquet was inflated to 250 mmHg. A posterior lateral approach to the posterior malleolus was made dissecting posterior to the peroneal tendon sheath. The sural nerve was looked for but was not seen. The FHL was encountered and released off of the posterior tibia. Posterior malleolus fracture was then encountered. It was elevated and fracture hematoma was debrided. K-wires held provisional plate fixation while the T-plate was centered. Starting proximally, cortical screws were placed while moving distally. This helped to reduce the fracture even more. The 3 distal holes were filled with lag by technique 2.7 mm cortical screws. We then turned our attention to the fibula. Dissecting on the other side of the peroneal tendons direct approach to the Fibula was made using a 10 blade. We looked for the superficial peroneal nerve at the proximal portion of the incision and this was protected throughout the case. Dissection was carried down to the bone and the fracture was encountered. This was a very long oblique fracture ending at the level of the joint. Two separate posterior to anterior lag screws were then placed by technique. A small March and Nephew fracture specific distal fibula locking plate was then fashioned and placed onto the fibula and confirmed to be in the correct position using fluoroscopy. A shaft screw was used followed by distal locking screws. Final fluoroscopy confirmed screw length and plate position as well as fracture reduction. We then turned our attention to the medial malleolus. A direct medial approach was taken to the medial malleolus. A transverse fracture was encountered. The fracture edges were cleaned. The posterior tibialis tendon was noted to be posteriorly along the posterior border of the tibia. This was protected throughout the remainder of the case. A small menhaden vessel pilot hole was drilled proximal to the fracture. This was used along with a pointed reduction clamp to obtain good reduction of the fracture. Two separate K-wires were used and confirmed on fluoroscopy to be in the correct position and trajectory. These were over-drilled and removed and 2 separate 4-0 fully-threaded non cannulated cancellous screws were placed to the far cortex Stress radiographs were then performed which demonstrated no widening of the mortise. Final fluoroscopy demonstrated appropriate screw lengths and hardware position as well as fracture reduction throughout. Wounds were closed with 2-0 PDS and 2-0 nylon and dressed with Xeroform, 4x4s cast padding and then placed into a well-padded splint the patient awoke from anesthesia and was transported to the postoperative recovery unit without any issues Complications: none Post-operative Condition: stable Disposition: PACU Plan for aftercare: Postoperatively: 6 weeks nonweightbearing. There are radiographic signs of healing we will let him start weight-bearing then however he was informed he may be 8 weeks nonweightbearing. Transitioned to a boot at the 2 week candelario in clinic when sutures are removed.
[2023-03-14] MEDS: HYDROCODONE/ACET 5/325 TABLET 1 TAB PO (18:00)
--- NOTE | 2023-03-14 19:28 | PC.NURSE ---
Discharge: Pt returned from OR. Lungs are clear, can wiggle toes, brisk cap refill, sl dusky appearing. Splint is c/d/i. No nausea, was able to eat his meal. Has been able to void. Seen by PT and he wasnt safe with crutches yet but he was able to maintain non weight bear status with walker. Reviewed d/c packet and explained. Questions answered, rx has been esent. Pt d/c to home via auto w/spouse.
== END 2023-03-14 18:30 | disposition home or self-care (01) | DRG 494 ==
LOC: ED 20:29 → AC 22:06
PROVIDERS: Orthopaedic Surgery; Admitting Provider Orthopaedic Surgery Orthopaedic Surgery of the Spine; Emergency Provider Emergency Medicine; PCP Family Medicine; Referring Provider Emergency Medicine; Visit Provider Orthopaedic Surgery Orthopaedic Surgery of the Spine
PROC: 0SSF04Z Reposition Right Ankle Joint with Internal Fixation Device, Open Approach (ICD-10-PCS; principal; 2023-03-14 11:00)
DX: S82.851B Displaced trimalleolar fracture of right lower leg, initial encounter for open fracture type I or II (principal); E11.9 Type 2 diabetes mellitus without complications; X50.1XXA Overexertion from prolonged static or awkward postures, initial encounter; Z79.84 Long term (current) use of oral hypoglycemic drugs
CPT/HCPCS: 27752; 29515; 36415; 73600; 73610; 76000; 80053; 82962; 85025; 96374; 97116; 97161; 99152; 99285; J0171; J0690; J1100; J1170; J1885; J2250; J2405; J2704; J3010

== ENCOUNTER → 2023-05-17 09:52 | Outpatient (CLI) | payer MEDICARE, OTHER, SELFPAY ==
[2023-03-13 23:00] VITALS: BMI 30.5
== END ==
PROVIDERS: PCP Internal Medicine; Referring Provider Orthopaedic Surgery; Visit Provider Surgery
DX: T81.31XA Disruption of external operation (surgical) wound, not elsewhere classified, initial encounter (principal); S91.001A Unspecified open wound, right ankle, initial encounter; R60.0 Localized edema; E11.622 Type 2 diabetes mellitus with other skin ulcer; I10 Essential (primary) hypertension; E78.5 Hyperlipidemia, unspecified; L53.9 Erythematous condition, unspecified
CPT/HCPCS: 11042; 11045; 87070; 87075; 87077; 87186; 87205; 99204; 99214

== ENCOUNTER → 2023-05-24 10:22 | Outpatient (CLI) | payer MEDICARE, OTHER, SELFPAY ==
[2023-03-13 23:00] VITALS: BMI 30.5
== END ==
LOC: WC 10:25
PROVIDERS: PCP Internal Medicine; Referring Provider Orthopaedic Surgery; Visit Provider Surgery
DX: E11.628 Type 2 diabetes mellitus with other skin complications (principal); T81.89XA Other complications of procedures, not elsewhere classified, initial encounter; S91.001A Unspecified open wound, right ankle, initial encounter; R60.0 Localized edema; L53.9 Erythematous condition, unspecified
CPT/HCPCS: 11042; 99213

== ENCOUNTER → 2023-05-30 14:07 | Outpatient (CLI) | payer MEDICARE, OTHER, SELFPAY ==
[2023-03-13 23:00] VITALS: BMI 30.5
== END ==
PROVIDERS: PCP Internal Medicine; Referring Provider Orthopaedic Surgery; Visit Provider Surgery
DX: T81.31XA Disruption of external operation (surgical) wound, not elsewhere classified, initial encounter (principal); S91.001A Unspecified open wound, right ankle, initial encounter; R60.0 Localized edema; R21 Rash and other nonspecific skin eruption; L53.9 Erythematous condition, unspecified
CPT/HCPCS: 11042

== ENCOUNTER → 2023-06-13 14:43 | Outpatient (CLI) | payer MEDICARE, OTHER, SELFPAY ==
[2023-03-13 23:00] VITALS: BMI 30.5
== END ==
LOC: WC 14:44
PROVIDERS: PCP Internal Medicine; Referring Provider Orthopaedic Surgery; Visit Provider Surgery
DX: E11.628 Type 2 diabetes mellitus with other skin complications (principal); T81.89XA Other complications of procedures, not elsewhere classified, initial encounter; S91.001A Unspecified open wound, right ankle, initial encounter; R60.0 Localized edema; L53.9 Erythematous condition, unspecified; R21 Rash and other nonspecific skin eruption
CPT/HCPCS: 11042

== ENCOUNTER → 2023-06-21 08:53 | Outpatient (CLI) | payer MEDICARE, OTHER, SELFPAY ==
[2023-03-13 23:00] VITALS: BMI 30.5
== END ==
LOC: WC 09:01
PROVIDERS: PCP Internal Medicine; Referring Provider Orthopaedic Surgery; Visit Provider Surgery
DX: T81.89XA Other complications of procedures, not elsewhere classified, initial encounter (principal); S91.001A Unspecified open wound, right ankle, initial encounter; R60.0 Localized edema; L53.9 Erythematous condition, unspecified; E11.628 Type 2 diabetes mellitus with other skin complications; I10 Essential (primary) hypertension
CPT/HCPCS: 11042; 99213

== ENCOUNTER → 2023-06-28 09:15 | Outpatient (CLI) | payer MEDICARE, OTHER, SELFPAY ==
[2023-03-13 23:00] VITALS: BMI 30.5
== END ==
LOC: WC 07-02 09:17
PROVIDERS: PCP Internal Medicine; Referring Provider Orthopaedic Surgery; Visit Provider Physician Assistant
DX: T81.89XA Other complications of procedures, not elsewhere classified, initial encounter (principal); S91.001A Unspecified open wound, right ankle, initial encounter; R60.0 Localized edema; L53.9 Erythematous condition, unspecified
CPT/HCPCS: 99212

== ENCOUNTER → 2023-07-02 10:13 | Outpatient (CLI) | payer MEDICARE, OTHER, SELFPAY ==
[2023-03-13 23:00] VITALS: BMI 30.5
== END ==
LOC: WC 10:14
PROVIDERS: PCP Internal Medicine; Referring Provider Orthopaedic Surgery; Visit Provider Surgery
DX: E11.628 Type 2 diabetes mellitus with other skin complications (principal); T81.89XA Other complications of procedures, not elsewhere classified, initial encounter; S91.001A Unspecified open wound, right ankle, initial encounter; R60.0 Localized edema
CPT/HCPCS: 11042; 87070; 87075; 87205

== ENCOUNTER → 2023-07-04 16:42 | Outpatient (ROUT) | payer MEDICARE, OTHER, SELFPAY ==
[2023-03-13 23:00] VITALS: BMI 30.5
[2023-07-04 17:08] LABS: Alanine Aminotransferase 45 IU/L (<50); Albumin 3.9 g/dL (3.5-5.0); Albumin Globulin Ratio 1.1 (1.0-2.8); Alkaline Phosphatase 102 U/L (38-126); Aspartate Aminotransferase 53 IU/L (17-59); BUN Creatinine Ratio 28.9 (6-22); Bilirubin Total 0.6 mg/dL (0.2-1.3); Blood Urea Nitrogen 24 mg/dL (9-20); Calcium 9.8 mg/dL (8.4-10.2); Carbon Dioxide 26 mmol/L (22-32); Chloride 99 mmol/L (98-107); Estimated Glomerular Filt Rate > 60 mL/min (>60); Globulin 3.7 g/dL (1.7-4.1); Glucose 212 mg/dL (80-110); HEMOLYSIS 18 (0-50); Potassium 4.6 mmol/L (3.4-5.1); Sodium 137 mmol/L (137-145); Total Protein 7.6 g/dL (6.3-8.2); Uric Acid 3.4 mg/dL (3.5-8.5)
[2023-07-04 17:10] LABS: Add Manual Diff / Slide Review NO; Basophils Absolute Auto 0 /uL (0-100); Basophils Percent Auto 0.7 % (0-2); Eosinophils Absolute Auto 300 /uL (0-450); Eosinophils Percent Auto 3.9 % (2-4); Hematocrit 41.8 % (41-53); Hemoglobin 14.2 g/dL (13.5-17.5); Lymphocytes Absolute Auto 1100 /uL (1100-4500); Lymphocytes Percent Auto 16.7 % (25-40); Mean Corpuscular HGB Conc 33.9 % (30-36); Mean Corpuscular Volume 85.6 fL (80-100); Monocytes Absolute Auto 1000 /uL (0-900); Monocytes Percent Auto 14.7 % (3-14); Neutrophils Absolute Auto 4200 /uL (1500-7000); Platelet Count 241 X10^3/uL (150-400); Red Blood Cell Count 4.88 X10^6/uL (4.5-5.9); Red Cell Distribution Width 13.6 % (11.6-14.8); White Blood Cell Count 6.5 X10^3/uL (4.5-11.0)
== END ==
PROVIDERS: PCP Internal Medicine; Visit Provider Internal Medicine Infectious Disease
DX: M86.9 Osteomyelitis, unspecified (principal); E11.9 Type 2 diabetes mellitus without complications
CPT/HCPCS: 80053; 84550; 85025; 86140

== ENCOUNTER → 2023-07-09 08:55 | Outpatient (CLI) | payer MEDICARE, OTHER, SELFPAY ==
[2023-03-13 23:00] VITALS: BMI 30.5
== END ==
LOC: WC 08:56
PROVIDERS: PCP Internal Medicine; Referring Provider Orthopaedic Surgery; Visit Provider Surgery
DX: E11.628 Type 2 diabetes mellitus with other skin complications (principal); T81.89XA Other complications of procedures, not elsewhere classified, initial encounter; S91.001A Unspecified open wound, right ankle, initial encounter; R60.0 Localized edema; L53.9 Erythematous condition, unspecified
CPT/HCPCS: 11042

== ENCOUNTER → 2023-07-11 13:43 | Outpatient (ROUT) | payer MEDICARE, OTHER, SELFPAY ==
[2023-03-13 23:00] VITALS: BMI 30.5
[2023-07-11 13:52] LABS: Add Manual Diff / Slide Review NO; Basophils Absolute Auto 0 /uL (0-100); Basophils Percent Auto 0.5 % (0-2); Eosinophils Absolute Auto 200 /uL (0-450); Eosinophils Percent Auto 3.5 % (2-4); Hematocrit 41.3 % (41-53); Lymphocytes Absolute Auto 1100 /uL (1100-4500); Mean Corpuscular HGB Conc 33.9 % (30-36); Mean Corpuscular Hemoglobin 29.2 PG (26-34); Mean Corpuscular Volume 86.1 fL (80-100); Monocytes Absolute Auto 900 /uL (0-900); Monocytes Percent Auto 15.2 % (3-14); Neutrophils Absolute Auto 3500 /uL (1500-7000); Neutrophils Percent Auto 61.8 % (50-75); Platelet Count 208 X10^3/uL (150-400); Red Cell Distribution Width 13.8 % (11.6-14.8); White Blood Cell Count 5.7 X10^3/uL (4.5-11.0)
[2023-07-11 14:00] LABS: Alanine Aminotransferase 36 IU/L (<50); Albumin 3.8 g/dL (3.5-5.0); Alkaline Phosphatase 102 U/L (38-126); Aspartate Aminotransferase 38 IU/L (17-59); BUN Creatinine Ratio 31.3 (6-22); Bilirubin Total 0.6 mg/dL (0.2-1.3); Blood Urea Nitrogen 21 mg/dL (9-20); C-Reactive Protein Quant 6.4 mg/dL (<1.0); Calcium 9.4 mg/dL (8.4-10.2); Carbon Dioxide 25 mmol/L (22-32); Chloride 101 mmol/L (98-107); Estimated Glomerular Filt Rate > 60 mL/min (>60); Globulin 3.8 g/dL (1.7-4.1); Glucose 249 mg/dL (80-110); HEMOLYSIS < 15 (0-50); Potassium 4.4 mmol/L (3.4-5.1); Sodium 136 mmol/L (137-145); Total Protein 7.6 g/dL (6.3-8.2)
== END ==
PROVIDERS: PCP Internal Medicine; Visit Provider Internal Medicine Infectious Disease
DX: M86.9 Osteomyelitis, unspecified (principal); E11.9 Type 2 diabetes mellitus without complications
CPT/HCPCS: 80053; 85025; 86140

== ENCOUNTER → 2023-07-16 09:39 | Outpatient (CLI) | payer MEDICARE, OTHER, SELFPAY ==
[2023-03-13 23:00] VITALS: BMI 30.5
== END ==
LOC: WC 09:40
PROVIDERS: PCP Internal Medicine; Referring Provider Orthopaedic Surgery; Visit Provider Surgery
DX: T81.89XA Other complications of procedures, not elsewhere classified, initial encounter (principal); S91.001A Unspecified open wound, right ankle, initial encounter; R60.0 Localized edema; L53.9 Erythematous condition, unspecified; E11.628 Type 2 diabetes mellitus with other skin complications
CPT/HCPCS: 11042

== ENCOUNTER → 2023-07-19 07:13 | Outpatient (CLI) | payer MEDICARE, OTHER, SELFPAY ==
[2023-03-13 23:00] VITALS: BMI 30.5
--- NOTE | 2023-07-19 07:17 | DI.RAD.S_ITS ---
PROCEDURE: XR CHEST 1V INDICATIONS: PICC placement TECHNIQUE: One view of the chest was acquired. COMPARISON: None. FINDINGS: Surgical changes and devices: Right PICC line is present with distal tip appearing to terminate overlying the subclavian vasculature. Lungs and pleura: Lungs are clear. No pleural effusions or pneumothorax. Mediastinum: Mediastinal contours appear normal. Heart size is normal. Bones and chest wall: No suspicious bony lesions. Overlying soft tissues appear unremarkable. IMPRESSION: No acute pulmonary process. Right PICC line as above. Further advancement is recommended. Dictated by: Zoey Leahy M.D. on 07/19/2023 at 11:34 Approved by: Zoey Leahy M.D. on 07/19/2023 at 11:35
== END ==
LOC: RAD 07:16
PROVIDERS: PCP Internal Medicine; Referring Provider Internal Medicine Infectious Disease; Visit Provider Internal Medicine Infectious Disease
DX: M86.461 Chronic osteomyelitis with draining sinus, right tibia and fibula (principal)
CPT/HCPCS: 71045

== ENCOUNTER → 2023-07-23 09:12 | Outpatient (CLI) | payer MEDICARE, OTHER, SELFPAY ==
[2023-03-13 23:00] VITALS: BMI 30.5
== END ==
PROVIDERS: PCP Internal Medicine; Referring Provider Orthopaedic Surgery; Visit Provider Surgery
DX: E11.628 Type 2 diabetes mellitus with other skin complications (principal); T81.89XA Other complications of procedures, not elsewhere classified, initial encounter; S91.001A Unspecified open wound, right ankle, initial encounter; R60.0 Localized edema; L53.9 Erythematous condition, unspecified; I10 Essential (primary) hypertension
CPT/HCPCS: 11042; 99212; 99213

== ENCOUNTER → 2023-07-30 09:17 | Outpatient (CLI) | payer MEDICARE, OTHER, SELFPAY ==
[2023-03-13 23:00] VITALS: BMI 30.5
== END ==
LOC: WC 09:18
PROVIDERS: PCP Internal Medicine; Referring Provider Internal Medicine; Visit Provider Surgery
DX: E11.628 Type 2 diabetes mellitus with other skin complications (principal); T81.89XA Other complications of procedures, not elsewhere classified, initial encounter; S91.001A Unspecified open wound, right ankle, initial encounter; R60.0 Localized edema; L98.8 Other specified disorders of the skin and subcutaneous tissue; Z79.2 Long term (current) use of antibiotics
CPT/HCPCS: 11042

== ENCOUNTER → 2023-08-06 11:10 | Outpatient (CLI) | payer MEDICARE, OTHER, SELFPAY ==
[2023-03-13 23:00] VITALS: BMI 30.5
== END ==
LOC: WC 11:12
PROVIDERS: PCP Internal Medicine; Referring Provider Orthopaedic Surgery; Visit Provider Surgery
DX: E11.628 Type 2 diabetes mellitus with other skin complications (principal); T81.89XA Other complications of procedures, not elsewhere classified, initial encounter; S91.001A Unspecified open wound, right ankle, initial encounter; R60.0 Localized edema; Z79.2 Long term (current) use of antibiotics; L98.8 Other specified disorders of the skin and subcutaneous tissue
CPT/HCPCS: 11042

== ENCOUNTER → 2023-08-13 10:05 | Outpatient (CLI) | payer MEDICARE, OTHER, SELFPAY ==
[2023-03-13 23:00] VITALS: BMI 30.5
== END ==
LOC: WC 10:07
PROVIDERS: PCP Internal Medicine; Referring Provider Internal Medicine; Visit Provider Surgery
DX: T81.89XA Other complications of procedures, not elsewhere classified, initial encounter (principal); S91.001A Unspecified open wound, right ankle, initial encounter; L98.8 Other specified disorders of the skin and subcutaneous tissue; R60.0 Localized edema
CPT/HCPCS: 99213

== ENCOUNTER → 2023-08-20 09:48 | Outpatient (CLI) | payer MEDICARE, OTHER, SELFPAY ==
[2023-03-13 23:00] VITALS: BMI 30.5
== END ==
LOC: WC 09:50
PROVIDERS: PCP Internal Medicine; Referring Provider Orthopaedic Surgery; Visit Provider Surgery
DX: T81.89XA Other complications of procedures, not elsewhere classified, initial encounter (principal); S91.001A Unspecified open wound, right ankle, initial encounter; L98.8 Other specified disorders of the skin and subcutaneous tissue; R60.0 Localized edema; E11.628 Type 2 diabetes mellitus with other skin complications; I10 Essential (primary) hypertension
CPT/HCPCS: 11042; 99212; 99213

== ENCOUNTER → 2023-08-27 09:01 | Outpatient (CLI) | payer MEDICARE, OTHER, SELFPAY ==
[2023-03-13 23:00] VITALS: BMI 30.5
== END ==
PROVIDERS: PCP Internal Medicine; Referring Provider Orthopaedic Surgery; Visit Provider Surgery
DX: E11.628 Type 2 diabetes mellitus with other skin complications (principal); T81.89XA Other complications of procedures, not elsewhere classified, initial encounter; S91.001A Unspecified open wound, right ankle, initial encounter; R60.0 Localized edema; Z79.2 Long term (current) use of antibiotics; L98.8 Other specified disorders of the skin and subcutaneous tissue
CPT/HCPCS: 11042

== ENCOUNTER → 2023-09-03 08:58 | Outpatient (CLI) | payer MEDICARE, OTHER, SELFPAY ==
[2023-03-13 23:00] VITALS: BMI 30.5
== END ==
LOC: WC 08:59
PROVIDERS: PCP Internal Medicine; Referring Provider Orthopaedic Surgery; Visit Provider Surgery
DX: T81.89XA Other complications of procedures, not elsewhere classified, initial encounter (principal); S91.001A Unspecified open wound, right ankle, initial encounter; L98.8 Other specified disorders of the skin and subcutaneous tissue; R60.0 Localized edema; E11.628 Type 2 diabetes mellitus with other skin complications
CPT/HCPCS: 17250; 99213

== ENCOUNTER → 2023-11-12 08:55 | Outpatient (CLI) | payer MEDICARE, OTHER, SELFPAY ==
[2023-03-13 23:00] VITALS: BMI 30.5
--- NOTE | 2023-11-12 10:29 | DI.MRI.S_ITS ---
PROCEDURE: MR ANKLE RT WO CON INDICATIONS: Displaced trimalleolar fracture of right lower leg TECHNIQUE: Noncontrast sagittal T1 spin echo and T2 fast spin echo with fat saturation, axial proton density fast spin echo and T2 fast spin echo with fat saturation, coronal T1 spin echo and T2 fast spin echo with fat saturation through the ankle/hindfoot. COMPARISON: [facility] [place], CR, XR ANKLE 3+ VIEWS RIGHT, 08/15/2023, 8:09. [facility] [place], CR, XR ANKLE 3+ VIEWS RIGHT, 10/29/2023, 9:43. FINDINGS: Image quality: Excellent. Bones and joints: Post ORIF changes are seen in distal tibia and fibular with significant susceptibility artifacts. Osteoarthritic changes are noted in midfoot and hindfoot joints. No definite osteochondral injuries of talar dome. No acute fracture or dislocation. Small plantar and dorsal calcaneal enthesophytes are seen. Small tibiotalar and subtalar joint effusion is likely present. No gross loose bodies. Medial structures: The posterior tibialis, flexor digitorum longus, and flexor hallucis longus tendons are intact. There is fluid distending tendon sheath of distal posterior tibialis tendon suggestive of low-grade tenosynovitis. The posterior tibial neurovascular bundle appears normal within the tarsal tunnel, without extrinsic mass effect. There is mildly thickened deltoid ligament and spring ligament. Lateral structures: Lateral ankle ligament evaluation is limited due to significant susceptibility artifacts. No significant widening of the distal tibial fibular syndesmosis. The visualized portion of peroneus tendons are grossly intact. No gross signal abnormality is seen within the sinus tarsi. Anterior structures: The tibialis anterior, extensor hallucis longus, and extensor digitorum longus tendons appear intact. The dorsal talonavicular ligament appears intact. Posterior and plantar structures: Achilles tendon is intact. Medial and lateral bands of the plantar fascia are of normal thickness. No abductor digiti quinti muscle atrophy to suggest Doe neuropathy. IMPRESSION: 1. Limited evaluation due to significant susceptibility artifacts. 2. Prior internal fixation of distal tibial shaft and fibular shaft with significant susceptibility artifacts. Osteoarthritic changes in midfoot and hindfoot joints. No definite acute fracture or dislocation. No evidence of osteochondral injuries. Small joint effusion, no loose bodies. 3. Low-grade tenosynovitis involving distal posterior tibialis tendon. Rest of the ankle tendons are intact. 4. Suggestion of low-grade medial ankle ligament sprain. Lateral ankle ligaments are poorly visualized due to significant susceptibility artifacts. No gross full-thickness ankle ligament rupture. Dictated by: Sandip Sampson M.D. on 11/12/2023 at 16:31 Approved by: Sandip Sampson M.D. on 11/12/2023 at 16:39
== END ==
PROVIDERS: PCP Internal Medicine; Referring Provider Physician Assistant; Visit Provider Physician Assistant
DX: S82.851D Displaced trimalleolar fracture of right lower leg, subsequent encounter for closed fracture with routine healing (principal); M65.861 Other synovitis and tenosynovitis, right lower leg; X58.XXXD Exposure to other specified factors, subsequent encounter
CPT/HCPCS: 73721

== ENCOUNTER 2024-07-09 06:18 | Day surgery (SDC) | payer MEDICARE, OTHER, SELFPAY ==
[2023-03-13 23:00] VITALS: BMI 30.5
[2024-07-02 09:36] VITALS: BMI 32.4
[2024-07-09] VITALS (8 sets, daily range): BP systolic 101–130; BP diastolic 59–75; PULSE 75–85; RESP 12–16; TEMP 36.3–36.9; O2SAT 93–97; BMI 31.1
--- NOTE | 2024-07-09 | DI.RAD.S_ITS ---
PROCEDURE: XR ANKLE RT 2V INDICATIONS: RIGHT ANKLE HARDWARE REMOVAL TECHNIQUE: 3 views of the ankle were acquired. COMPARISON: [facility], , XR ANKLE RT 2V, 03/14/2023, 12:39. FINDINGS: Bones: Digital images from the OR show all plate and screw removal from the distal tibia and fibula. Non unified nondisplaced fracture through the medial malleolus appreciated. There is also a non unified minimally displaced oblique fracture of the lateral malleolus. Tibiotalar and talocalcaneal joints: Spurring anterior tibial plafond noted. There is asymmetric widening medial ankle mortise.. Soft tissues: No soft tissue swelling, calcification or mass. IMPRESSION: Minimally displaced non unified old oblique fracture of the lateral malleolus and nondisplaced old transverse fracture of the medial malleolus. Asymmetric widening medial ankle mortise suggest medial instability Dictated by: Bryce Hernandez M.D. on 07/10/2024 at 10:26 Approved by: Bryce Hernandez M.D. on 07/10/2024 at 10:29
--- NOTE | 2024-07-09 07:05 | PM.PREOP ---
Pre-operative Note Interval Note History & Physical reviewed/Exam performed by Physician: Yes Changes to H&P: No
[2024-07-09] MEDS: LACTATED RINGERS 1,000 ML 42 ML IV (07:18)
[2024-07-09] MEDS: CEFAZOLIN 2 GM/100 ML PREMIX 100 ML IV (07:52)
[2024-07-09] MEDS: BUPIVACAINE 0.25% W/ EPI 30 ML VIAL INJ (08:26)
[2024-07-09] MEDS: OXYCODONE IR 5 MG TABLET PO (10:15)
[2024-07-09] MEDS: hydrOXYzine HCL 25 MG TABLET PO (10:30)
--- NOTE | 2024-07-09 12:14 | P.OP_ITS ---
Operative Date/Time/Diagnoses Date of procedure: 07/09/24 Time of procedure: 12:14 Pre-op diagnosis: Posttraumatic ankle arthritis right Sequelae displaced trimalleolar ankle fracture right Contracted scar ankle Post-op diagnosis: same Procedure & Clinicians Procedure: 1. Removal of implant and hardware right ankle from both the tibia and fibula plates and screws. CPT code 77438 right 2. Debridement skin and subcutaneous tissue 1st 20 sq cm right ankle separate site CPT code 57989 modifier 59 Same procedure as scheduled: Yes Indications: The patient was a 69-year-old male that had a right ankle fracture dislocation he had an ORIF with a another orthopedic surgeon about a year ago. He has gone on to severe posttraumatic arthritis and chronic pain. He has been indicated for total ankle arthroplasty. As part of the staged procedure he requires removal of his hardware through separate incisions this is extensive hardware removal involving the fibula the posterior tibia through a posterior lateral approach. He also has a painful adherent scar medially requests debridement and revision of. The risks and benefits of the procedure have been discussed with the patient and given the opportunity to ask questions. The risks of surgery include but are not limited to infection, malunion, nonunion, persistence of pain, damage to nerves and blood vessels, posttraumatic arthritis, DVT, PE, cardiopulmonary complications and . The patient expressed a thorough understanding of the risks and benefits of surgery and has elected to proceed. Consent was signed in the office today. Surgeon: Quita Eckert Click Yes if Unassisted: Yes Anesthesia Type: General Operative Notes Findings: 1. Retained lateral fibular locking plate retained posterior tibia T plate. These were removed. Extensive dissection required to mobilize and remove posterior tibial plate including removal of bent screws requiring extensive time and instrumentation. 2. Separate incision for mobilization of medial adherence scar to medial malleolus excision of contracted scar subcutaneous mobilization and closure. Closure Type: primary Specimen(s): none sent Estimated Blood Loss (mL): 30 Tourniquet time (min): 60 Procedure in detail: The patient was seen in the preoperative area the site of surgery was marked informed consent confirmed this was the right ankle. He was taken back to the operating room and positioned on the table. General anesthetic was administered. The patient was rolled up into the lateral decubitus position. A well padded axillary roll was placed. A well-padded ipsilateral thigh tourniquet was applied. The right lower extremity was then prepped and draped in the standard sterile fashion a formal time-out procedure was performed confirming the patient's side and site of surgery administration of appropriate preoperative antibiotics. All were in agreement. Attention turned to the right ankle. The posterolateral previous incision scar was opened and excised with the widened part proximally. This did have to be extended proximally for proper tissue mobilization. An extensive scarred bed was encountered. Careful dissection to expose the peroneal tendons and then dissect anterior to them to the posterior fibula and lateral fibula was completed to expose the lateral fibula plate and screws. These were removed using the appropriate screwdrivers and included 3.5 and 2.7 screws from the [employer] Nephew set. The plate was then removed and the rongeur used to remove the bony prominences. There were then separate 2 screws in the fibula outside of the plate that had to be identified and removed as well. Once these were completed attention was turned to the distal tibia careful dissection was taken posterior to the peroneal tendons and the interval between the peroneal tendons and then the FHL medially and the Achilles posteriorly to expose the posterior tibia. Again there was extensive scarring in his bed and did take meticulous additional dissection then what a [place] wound bed would require. The posterior tibia was then exposed exposing the T plate and screws. The shaft T plate screws were removed. Distally the medial and lateral distal screws were removed. The central screw was bent and stripped and exceedingly difficult to remove requiring vice scalping machine operator in the rongeur to turned it a quarter turn at a time to remove. This was eventually completely removed then the plate was removed. C-arm was brought in confirming all hardware removal from the tibia and from the fibula. The posttraumatic arthritis was evidence on the x-ray. The wounds were irrigated and were closed with 2-0 PDS 2-0 Vicryl 4-0 Monocryl and 3-0 nylon suture. Local anesthetic was administered for postoperative pain control. Attention was then turned medially and a separate incision was made along the m edial contracted scar scar edges were excised in the elliptical fashion. The Whitman elevator and blue handle elevator were used to mobilize the subcutaneous tissue and skin off of the medial malleolus both anteriorly and posteriorly. Once this was completed the area was irrigated and was closed with 4-0 Monocryl and 3-0 nylon suture. Additional local anesthetic was infiltrated for postoperative pain control. Once this was completed the tourniquet was released prior to final closure. Hemostasis was achieved. Dressings were placed with Xeroform gauze Webril and an Gage wrap. The patient was awoken from anesthesia and taken to the recovery unit in good condition there were no immediate complications from this procedure. Counts were correct. Complications: none Post-operative Condition: stable Disposition: PACU Plan for aftercare: Touchdown or partial weight-bearing in the boot. May remove the boot if needed. Keep dressing clean dry and intact until follow up. Once his wounds are healed appropriately we will work on progressing towards his stage total ankle replacement.
== END 2024-07-09 11:15 | disposition home or self-care (01) ==
PROVIDERS: PCP Internal Medicine; Referring Provider Orthopaedic Surgery Foot and Ankle Surgery; Visit Provider Orthopaedic Surgery Foot and Ankle Surgery
PROC: (CPT 11042; principal; 2024-07-09 07:45)
DX: S82.851S Displaced trimalleolar fracture of right lower leg, sequela (principal); M19.171 Post-traumatic osteoarthritis, right ankle and foot; M25.571 Pain in right ankle and joints of right foot; I10 Essential (primary) hypertension; E78.5 Hyperlipidemia, unspecified; E11.9 Type 2 diabetes mellitus without complications; E66.9 Obesity, unspecified; Z68.32 Body mass index [BMI] 32.0-32.9, adult; Z79.84 Long term (current) use of oral hypoglycemic drugs
CPT/HCPCS: 11042; 27704; 73600; 76000; 82962; A9270; J0330; J0690; J1171; J2250; J2405; J2704; J3010

== ENCOUNTER → 2024-08-05 07:33 | Outpatient (CLI) | payer MEDICARE, OTHER, SELFPAY ==
[2023-03-13 23:00] VITALS: BMI 30.5
--- NOTE | 2024-08-05 07:34 | DI.CT.S_ITS ---
PROCEDURE: CT LE RT WO CON INDICATIONS: ARTHRITIS OF RIGHT ANKLE TECHNIQUE: Noncontrast 3-mm axial sections acquired from the distal tibial shaft to the bottom of the foot, with coronal and sagittal reformats.. COMPARISON: None. FINDINGS: Image quality: Diagnostic. Bones: Patient is status post right total knee arthroplasty. Right knee alignment is anatomic. No evidence of hardware loosening or failure. No acute periprosthetic fracture or dislocation. No significant patellar subluxation. Prior ORIF in distal tibia and fibular are noted with postsurgical changes. Partial bony union is achieved at distal fibular shaft fracture site and posterior malleolus fracture site. Partial bony union is also seen at medial malleolus fracture site. No acute fracture or dislocation is seen. No suspicious bony lesions. Severe tibiotalar joint osteoarthritic changes are seen with near complete loss of joint space, extensive subchondral sclerosis and subcortical cystic changes. Osteoarthritic changes also noted involving articulation between lateral malleolus and lateral periphery of talus. Hcxo-ye-pftayhie osteoarthritic changes are noted in rest of the right foot. Well-defined dorsal calcaneal enthesophyte is seen. Soft tissues: There is mild soft tissue swelling and edema surrounding ankle joint. Moderate tibiotalar joint effusion is seen, no gross calcified intra-articular loose bodies. No significant right knee joint effusion. No soft tissue mass or drainable fluid collection. Vascular calcifications are seen in right lower leg. No full-thickness muscle or tendon rupture. IMPRESSION: 1. Postsurgical changes in ankle joint from prior internal fixation of trimalleolar fracture. Partial bony union is seen at trimalleolar fracture sites. No acute fracture or dislocation. 2. Severe tibiotalar joint osteoarthritis. Esip-ea-rrgwgaev osteoarthritic changes throughout rest of the right foot more notably involving talonavicular joint and subtalar joint. No suspicious bony lesions. 3. Prior right total knee arthroplasty with anatomic right knee alignment. No gross hardware loosening or failure. 4. Moderate tibiotalar joint effusion, no calcified intra-articular loose bodies. No significant right knee joint effusion. 5. Vascular calcifications in posterior right lower leg. No soft tissue mass or other soft tissue calcifications. No full-thickness tendon or muscle rupture. Dictated by: Sandip Sampson M.D. on 08/06/2024 at 12:46 Approved by: Sandip Sampson M.D. on 08/06/2024 at 16:16
== END ==
PROVIDERS: PCP Internal Medicine; Referring Provider Orthopaedic Surgery Foot and Ankle Surgery; Visit Provider Orthopaedic Surgery Foot and Ankle Surgery
DX: M19.071 Primary osteoarthritis, right ankle and foot (principal); M77.31 Calcaneal spur, right foot; M25.471 Effusion, right ankle; S82.851S Displaced trimalleolar fracture of right lower leg, sequela; Z96.651 Presence of right artificial knee joint
CPT/HCPCS: 73700

== ENCOUNTER → 2024-09-18 10:11 | Outpatient (CLI) | payer MEDICARE, OTHER, SELFPAY ==
[2023-03-13 23:00] VITALS: BMI 30.5
--- NOTE | 2024-09-18 10:15 | EKG_ITS ---
[place] [id number] [place] [id number] Test Date: 2024-09-18 Pat Name: Jean-Claude Davidson Department: 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
[2024-09-18 12:15] LABS: Add Manual Diff / Slide Review NO; Basophils Absolute Auto 100 /uL (0-100); Basophils Percent Auto 1.2 % (0-2); Eosinophils Absolute Auto 200 /uL (0-450); Eosinophils Percent Auto 3.2 % (2-4); Hematocrit 47.8 % (41-53); Hemoglobin 16.2 g/dL (13.5-17.5); Lymphocytes Absolute Auto 1400 /uL (1100-4500); Lymphocytes Percent Auto 26.3 % (25-40); Mean Corpuscular Hemoglobin 31.4 PG (26-34); Mean Corpuscular Volume 92.4 fL (80-100); Monocytes Absolute Auto 900 /uL (0-900); Monocytes Percent Auto 15.9 % (3-14); Neutrophils Absolute Auto 2900 /uL (1500-7000); Neutrophils Percent Auto 53.4 % (50-75); Platelet Count 167 X10^3/uL (150-400); Red Blood Cell Count 5.17 X10^6/uL (4.5-5.9); Red Cell Distribution Width 14.2 % (11.6-14.8); White Blood Cell Count 5.4 X10^3/uL (4.5-11.0)
[2024-09-18 12:23] LABS: Hemoglobin A1C% w Est Avg Glu 5.7 % (4.0-6.0)
[2024-09-18 12:51] LABS: Alanine Aminotransferase 57 IU/L (<50); Albumin 4.6 g/dL (3.5-5.0); Albumin Globulin Ratio 1.4 (1.0-2.8); Alkaline Phosphatase 95 U/L (38-126); Aspartate Aminotransferase 65 IU/L (17-59); Bilirubin Total 0.9 mg/dL (0.2-1.3); Blood Urea Nitrogen 17 mg/dL (9-20); Calcium 9.8 mg/dL (8.4-10.2); Carbon Dioxide 24 mmol/L (22-32); Chloride 102 mmol/L (98-107); Estimated Glomerular Filt Rate > 60 mL/min (>60); Globulin 3.2 g/dL (1.7-4.1); Glucose 165 mg/dL (80-110); HEMOLYSIS < 15 (0-50); Potassium 4.7 mmol/L (3.4-5.1); Sodium 140 mmol/L (137-145); Total Protein 7.8 g/dL (6.3-8.2)
== END ==
PROVIDERS: PCP Internal Medicine; Referring Provider Orthopaedic Surgery Foot and Ankle Surgery; Visit Provider Orthopaedic Surgery Foot and Ankle Surgery
DX: Z01.818 Encounter for other preprocedural examination (principal); R73.9 Hyperglycemia, unspecified; Z01.812 Encounter for preprocedural laboratory examination
CPT/HCPCS: 36415; 80053; 83036; 85025; 93005

== ENCOUNTER 2024-10-29 07:27 | Day surgery (SDC) | payer MEDICARE, OTHER, SELFPAY ==
[2023-03-13 23:00] VITALS: BMI 30.5
[2024-10-21 09:34] VITALS: BMI 32.4
[2024-10-29] VITALS (10 sets, daily range): BP systolic 120–146; BP diastolic 68–82; PULSE 74–85; RESP 10–17; TEMP 36.6–37.7; O2SAT 92–98; BMI 33.0
[2024-10-29] MEDS: LACTATED RINGERS 1,000 ML 42 ML IV ×2 (07:48→11:22)
--- NOTE | 2024-10-29 07:57 | PM.PREOP ---
Pre-operative Note Interval Note History & Physical reviewed/Exam performed by Physician: Yes Changes to H&P: No
--- NOTE | 2024-10-29 07:57 | PM.OP.1 ---
Operative Date/Time/Diagnoses Date of procedure: 10/29/24 Time of procedure: 08:50 Pre-op diagnosis: Posttraumatic arthritis right ankle Post-op diagnosis: same Procedure & Clinicians Procedure: Total ankle arthroplasty right ankle CPT code 73210 Tendo-Achilles lengthening right ankle CPT code 53483 modifier 59 for separate site Same procedure as scheduled: Yes Indications: The patient is a 69-year-old male the headache comminuted trimalleolar ankle fracture dislocation proximally 1 year ago this is fixed by another surgeon went on to posttraumatic arthritis. The patient has been indicated for staged total ankle arthroplasty he underwent hardware removal and has now been indicated for total ankle arthroplasty. We discussed the risks benefits and alternatives to the procedure. Patient has elected to proceed. We discussed possibility for need for ligamentous balancing procedures, ligament releases were tendon lengthenings. We discussed the risks for intraoperative fracture or stress fracture and potential need for additional fixation. The risks and benefits of the procedure have been discussed with the patient and given the opportunity to ask questions. The risks of surgery include but are not limited to infection, loosening, fracture, malunion, nonunion, persistence of pain, damage to nerves and blood vessels, wound healing problems, DVT, PE, cardiopulmonary complications and . The patient expressed a thorough understanding of the risks and benefits of surgery and has elected to proceed. Consent was signed. Surgeon: Quita Eckert Click Yes if Unassisted: Yes Anesthesia Type: General, Peripheral nerve block and Local Operative Notes Findings: End-stage valgus right ankle arthritis posttraumatic deformity. Closure Type: primary Specimen(s): none sent Prosthetic devices, grafts, tissues, transplants, or devices: [place] 28 [place] 3D total ankle arthroplasty Tibia arc 3L with stem Talus flat cut 3 Polyethylene liner 9 mm 50 mm 3.5 fully-threaded cannulated screw Synthes medial malleolus Estimated Blood Loss (mL): 50 Blood products transfused: none Tourniquet time (min): 120 Procedure in detail: Patient was seen in the preoperative area the site of surgery was marked informed consent confirmed. This was the right ankle. Patient was brought to the operating room by the anesthesia team. A preoperative block was placed for postoperative pain control. This was placed by the anesthesia team. The patient was positioned supine on operative table. All bony prominences were well padded. An SCD was placed on the contralateral lower extremity. An ipsilateral thigh bump was applied. And a stack of blankets was placed below the operative extremity with care to make sure the heel was hanging free. The left lower extremity was then prepped and draped in the standard sterile fashion a formal time-out procedure was performed confirming the patient's side and site of surgery administration of the appropriate preoperative antibiotic. All were in agreement. The Esmarch was then used for exsanguination the tourniquet raised on the thigh to 250 mmHg. Attention turned to the left ankle. Standard landmarks for a 10 cm incision for the anterior approach the ankle was performed just about 1 cm lateral to the tibial crest to the level of the talonavicular joint. This was taken down through the skin and subcutaneous tissue. The extensor retinaculum was then divided. Care was taken to visualize and protect the superficial peroneal nerve branch and retract this laterally. The interval between the tibialis anterior and the EHL was demonstrated, and the EHL and neurovascular bundle was retracted laterally and the tibialis anterior medially. The joint was exposed and the Bovie cautery was used to subperiosteally dissect out the joint. Next the apex 3D model for the tibia was brought in and the applied to the bone and secured in place with 1 pin and then checked on AP fluoroscopy and then the 2nd pin was applied and these were verified in the AP and lateral planes for appropriate placement. Next the cut block guide was applied and checked for position and slope and then pinned in place. Then the drill holes for the arc tibia were completed with the green guide and then the black guide and then the reciprocal saw was brought in for the gutter cuts. Then the coupled cut to the talus was performed after the talus was pinned neutral and checked on AP and lateral fluoroscopy. The sagittal saw was used for the flat cut talus. Then the tibia was finished with a sized walker drill cut guides and then the guide was flipped over and the final drill holes completed. At this point the tibia and talus bone resections were removed. And the spacer block was applied to confirm appropriate resection. There is a slight marked prominence to the talus so this was smoothed off using the sagittal saw and rasp. Next the guide for the tibial tray was applied and pinned in place and the central stem hole was reamed on drill and confirmed on lateral fluoroscopy for appropriate depth. Once this was completed the talus tray was floated and checked for alignment and then pinned in place with the shoulder pins these were finally tightened on hand with a T-handle. Meticulous care was taken to make sure the medial and lateral gutters were clear. Once this was positioned appropriate the drill holes for the pegs on the talus implant were drilled. Then all the implants were removed and the final tibia tray was applied. The tibial tray was then inserted in place and confirmed appropriate alignment on fluoroscopy. As this was impacted was noted to gap or rock against anterior cortex this was felt to be due to the posttraumatic nature of this ankle with multiple screw tracts from previous removed hardware so was removed and cement applied this was re impacted and held until cement hardening which demonstrated appropriate placement and alignment stability under repeat fluoroscopy after cement hardening. Attention was then turned to the talus which was placed in the standard fashion. A 6 mm poly was initially utilized however there was some anterior gapping so this was graded 2 trials with 7 8 and 9 and then a final 9 selected. Then the trial 9 mm poly was applied. This achieved excellent alignment and stability. This is just short of 10? dorsiflexion so decision was made for a tendo-Achilles lengthening. The leg was held in extension with the ankle in dorsiflexion with the implants and a polyethylene liner in place. Then a 3 small incision chandrika section technique was utilized to lengthen the Achilles tendon with the most distal and most proximal chandrika sections to the lateral side in the middle chandrika section to the medial side. A palpable and audible stretch was achieved now with Range of motion was greater than 10? dorsiflexion with the knee extended and 30? plantar flexion and was stable to varus and valgus stress with no requirements for additional ligamentous procedures. Next given the small size of the ankle a prophylactic medial malleolus screw was placed to prevent stress fracture. A separate incision was made medially for this wire for the cannulated screw was positioned and confirmed at appropriate positioning on AP and lateral x-rays. This was then drilled and measured and a 50 mm 3.5 cannulated fully threaded screw from the Synthes set was applied. Final fluoroscopic x-rays an AP mortise and lateral were obtained that demonstrated appropriate hardware alignment and good clear gutters. At this point tourniquet was released hemostasis was achieved. A Betadine soak was completed then the wound was rinsed. The wounds were closed in a layered fashion including the extensor retinaculum. And the skin was closed with nylon suture. 30 cc of 0.25% Marcaine with epinephrine were injected for local anesthesia. A sterile dressing was applied with Xeroform gauze Webril and a bulky Garcia splint in neutral position. The patient was awoken from anesthesia and taken to the recovery area in good condition there were no immediate complications from this procedure. Counts were correct. Complications: none Post-operative Condition: stable Disposition: PACU Plan for aftercare: Touchdown or nonweightbearing for 2-3 weeks until follow up in Orthopedic Clinic then we will advance weight-bearing 25% each week in a boot and start ankle range of motion which anterior incision is healed appropriately. Aspirin for DVT prophylaxis.
--- NOTE | 2024-10-29 08:46 | SUR.PREOP ---
Block start time [0839] . Timeout at 0835 Monitoring initiated and maintained throughout procedure. Oxygen and medications given per anesthesiologist instructions. Patient remained stable throughout procedure, no adverse reactions noted. Block end time [0843].
[2024-10-29] MEDS: CEFAZOLIN 2 GM/100 ML PREMIX 100 ML IV (08:51)
--- NOTE | 2024-10-29 09:16 | SUR.OPER ---
Supine on padded OR bed, head on pillow, arms secured on padded arm boards at <90 degrees abduction, legs uncrossed, safety belt across torso, tape over blanket over non operative leg. Dr. Eckert in room at time of positioning, Right leg elevated and bumped with blankets by surgeon. All pressure points padded, approved of positioning.
[2024-10-29] MEDS: BUPIVACAINE 0.25% W/ EPI 30 ML VIAL INJ (09:29)
--- NOTE | 2024-10-29 12:30 | DI.RAD.S_ITS ---
PROCEDURE: XR ANKLE RT MIN 3V INDICATIONS: RIGHT TOTAL ANKLE TECHNIQUE: Multiple intra operative fluoroscopic views of the ankle were acquired. COMPARISON: [facility], RUTH ANN, XR ANKLE RT 2V, 07/09/2024, 9:17. FINDINGS: Bones: Multiple intraoperative views of the right ankle were acquired during arthroplasty. Bony alignment with prosthetic components appears grossly normal Soft tissues: No tibiotalar joint effusion. Achilles tendon appears normal. IMPRESSION: Intraoperative fluoroscopy for tibiotalar arthroplasty. Dictated by: Justa Morales M.D. on 10/29/2024 at 15:46 Approved by: Justa Morales M.D. on 10/29/2024 at 15:47
== END 2024-10-29 14:35 | disposition home or self-care (01) ==
PROVIDERS: PCP Internal Medicine; Referring Provider Orthopaedic Surgery Foot and Ankle Surgery; Visit Provider Orthopaedic Surgery Foot and Ankle Surgery
PROC: (CPT 27702; principal; 2024-10-29 08:45)
PROC: (CPT 27685; 2024-10-29 08:45)
DX: M19.171 Post-traumatic osteoarthritis, right ankle and foot (principal); G89.18 Other acute postprocedural pain; M21.071 Valgus deformity, not elsewhere classified, right ankle; E11.9 Type 2 diabetes mellitus without complications; Z79.84 Long term (current) use of oral hypoglycemic drugs
CPT/HCPCS: 27702; 27685; 64450; 73610; 76000; 82962; C1776; C1713; J0690; J1100; J2250; J2405; J2704; J3010